=== PATIENT | female | born 2000 | race Caucasian/White ===

== ENCOUNTER 2018-08-31 02:04 | Emergency (ER) | payer OTHER ==
[2018-08-31] MEDS ORDERED: DEXAMETHASONE 10 MG/ML VIAL IVP ONE (02:46)
[2018-08-31] MEDS ORDERED: KETOROLAC 15 MG/1 ML SDV IVP ONE (02:46)
[2018-08-31] MEDS ORDERED: HALOPERIDOL LACT 5 MG/ML INJ IVP ONE (02:46)
[2018-08-31] MEDS ORDERED: DEXAMETHASONE 4 MG/ML VIAL ONE ×2 (02:54→02:55)
--- NOTE | 2018-08-31 03:28 | EDPHY ---
H & P Stated Complaint: DAVILA, vision changes, decreased appetite, fatigue, feverlike x days - Personal History Current Tetanus/Diphtheria Vaccine: Yes Current Tetanus Diphtheria and Acellular Pertussis (TDAP): Yes - Medical/Surgical History Hx Asthma: No Hx Chronic Respiratory Disease: No Hx Diabetes: No Hx Cardiac Disease: No Hx Renal Disease: No Hx Cirrhosis: No Hx Alcoholism: No Hx HIV/AIDS: No Hx Splenectomy or Spleen Trauma: No Other PMH: poss brain tumor, seizures Time Seen by Provider: 08/31/18 02:24 HPI/ROS: Chief Complaint: Headache, vision changes, difficulty with speech HPI: 17-year-old woman presenting complaining of 3 days of left-sided headache. It is described as pounding. About an 8/10. Is made worse with bright light or bright noise. She does not have a history of similar headaches in the past. Does have a family history migraine headaches in her mother and grandmother. Some nausea but no vomiting. Is also complaining of pain in her left jaw since she had her wisdom teeth removed 3 months ago. No fevers or chills. She does have a history of seizures when she was a child between the ages of 3 and 8. She also tells me that at that time she had brain scans and was told that she had an abnormality in the left frontal portion of her brain and in the back of her brain. At that time it was recommended to her parents that she have surgical repair of these. The patient's parents deferred that treatment. She has not had a brain scan since she was 11 years old. Patient also states that 2 weeks ago she was told by her friends that when she was trying to speak she seemed to be speaking nonsensical words. This went on an off over the course of the day and then resolved. ROS: 10 systems were reviewed and were negative except those elements noted in the HPI. PMH: Seizure disorders a child, possible brain av malformation Social History: No smoking, no alcohol, no recreational drug use Family History: non-contributory Physical Exam: Gen: Awake, Alert, No Distress HEENT: Nose: no rhinorrhea Eyes: PERRLA, EOMI Mouth: Moist mucosa Neck: Supple, no JVD Chest: nontender, lungs clear to auscultation Heart: S1, S2 normal, no murmur Abd: Soft, non-tender, no guarding Back: no CVA tenderness, no midline tenderness Ext: no edema, non-tender Skin: no rash Neuro: CN II-XII intact, Sensation grossly intact, Strength 5/5 in bilateral upper and lower extremities (Shar Lyman) Constitutional: Initial Vital Signs Temperature (C) 37.0 C 08/31/18 02:08 Heart Rate 86 08/31/18 02:08 Respiratory Rate 20 08/31/18 02:08 Blood Pressure 132/90 H 08/31/18 02:08 O2 Sat (%) 96 08/31/18 02:08 O2 Delivery Mode Room Air Allergies/Adverse Reactions: lorazepam [From Ativan] Allergy (Verified 08/31/18 02:07) Hives Home Medications: Medication Instructions Recorded Ibuprofen 08/31/18 Medical Decision Making - Diagnostics Imaging Results: Imaging Impressions Brain MRI 08/31/18 02:47 Impression: Negative MRI of the brain without and with contrast. Results called to Dr. Bourgeois at 8:30 AM. Head MRA 08/31/18 03:24 Impression: Negative MR angiography of the [place]. Results called to Dr. Bourgeois at 8:30 AM. ED Course/Re-evaluation: 17-year-old presenting with headache would sounds very much like a migraine headache. Was concerning, however, is that she has a history of abnormal brain scans as a child and actually had recommendations of surgical parents for what sounds like AV malformations. Given the new onset of her symptoms plan will be to obtain MRI and MRA of her brain. Will place an IV and give her migraine cocktail at this time. She is neurologically intact at this time. Patient is improved after migraine cocktail. Headaches in a 11/12. Am awaiting MRI. 0700 patient signed out to Dr. Bourgeois pending MRI results. (Shar Lyman) 7:00 a.m.-I assumed care of this patient at shift change. The plan per Dr. Lyman is to discharge the patient home if the MRI results are unremarkable. 9:00 a.m.-MRI results are unremarkable. Results discussed with the patient. Feels much better, headache has resolved. Likely migraine headache. Neurologic exam remains normal. Will discharge home. Warning signs discussed. (Courtney Bourgeois) Differential Diagnosis: Headache including but not limited to subarachnoid hemorrhage, migraine headache , tension headache and infectious causes such as meningitis, pharyngitis and sinusitis. (Courtney Bourgeois) - Data Points Laboratory Results: Laboratory Results 08/31/18 03:27 08/31/18 03:27 08/31/18 08/31/18 08/31/18 03:27 03:27 03:27 WBC 6.12 10^3/uL 10^3/uL (3.80-9.50) RBC 4.40 10^6/uL 10^6/uL (4.18-5.33) Hgb 13.3 g/dL g/dL (12.6-16.3) Hct 38.8 % % (38.0-47.0) MCV 88.2 fL fL (81.5-99.8) MCH 30.2 pg pg (27.9-34.1) MCHC 34.3 g/dL g/dL (32.4-36.7) RDW 11.8 % % (11.5-15.2) Plt Count 293 10^3/uL 10^3/uL (150-400) MPV 9.0 fL fL (8.7-11.7) Neut % (Auto) 32.1 % L % (39.3-74.2) Lymph % (Auto) 51.8 % H % (15.0-45.0) [place] % (Auto) 12.7 % % (4.5-13.0) Eos % (Auto) 2.5 % % (0.6-7.6) Baso % (Auto) 0.7 % % (0.3-1.7) Nucleat RBC Rel Count 0.0 % % (0.0-0.2) Absolute Neuts (auto) 1.97 10^3/uL 10^3/uL (1.70-6.50) Absolute Lymphs (auto) 3.17 10^3/uL H 10^3/uL (1.00-3.00) Absolute Monos (auto) 0.78 10^3/uL 10^3/uL (0.30-0.80) Absolute Eos (auto) 0.15 10^3/uL 10^3/uL (0.03-0.40) Absolute Basos (auto) 0.04 10^3/uL 10^3/uL (0.02-0.10) Absolute Nucleated RBC 0.00 10^3/uL 10^3/uL (0-0.01) Immature Gran % 0.2 % % (0.0-1.1) Immature Gran # 0.01 10^3/uL 10^3/uL (0.00-0.10) Sodium 141 mEq/L mEq/L (135-145) Potassium 4.3 mEq/L mEq/L (3.3-5.0) Chloride 109 mEq/L mEq/L (97-110) Carbon Dioxide 24 mEq/l mEq/l (22-31) Anion Gap 8 mEq/L mEq/L (6-14) BUN 7 mg/dL mg/dL (7-23) Creatinine 0.7 mg/dL mg/dL (0.6-1.0) Estimated GFR > 60 Glucose 90 mg/dL mg/dL (70-100) Calcium 9.2 mg/dL mg/dL (8.5-10.4) Beta HCG, Qual NEGATIVE Medications Given: Discontinued Medications Dexamethasone (Decadron Injection) 10 mg IVP EDNOW ONE Stop: 08/31/18 02:47 Last Admin: 08/31/18 03:38 Dose: 10 mg Diphenhydramine HCl (Benadryl Injection) 25 mg IVP EDNOW ONE Stop: 08/31/18 02:47 Last Admin: 08/31/18 03:38 Dose: 25 mg Haloperidol Lactate (Haldol Injection) 2.5 mg IVP EDNOW ONE Stop: 08/31/18 02:47 Last Admin: 08/31/18 03:38 Dose: 2.5 mg Ketorolac Tromethamine (Toradol) 15 mg IVP EDNOW ONE Stop: 08/31/18 02:47 Last Admin: 08/31/18 03:39 Dose: 15 mg Departure - Departure Disposition: Home, Routine, Self-Care Clinical Impression: Migraine headache Qualifiers: Migraine type: without aura Status migrainosus presence: without status migrainosus Intractability: not intractable Qualified Code(s): G43.009 - Migraine without aura, not intractable, without status migrainosus Condition: Good Instructions: Migraine Headache (ED) Additional Instructions: Return for worsening symptoms or any concerns. Referrals: Mee Coronado MD [[facility] [place] Primary Care Provider] - As per Instructions (Call to make an appointment)
[2018-08-31 04:03] LABS: PLATELET COUNT 293 10^3/uL (150-400)
[2018-08-31] MEDS ORDERED: GADOBUTROL 10 ML VIAL IVP ONE (06:37)
[2018-08-31 09:32] VITALS: BP 112/76
== END 2018-08-31 09:32 | disposition home or self-care (01) ==
DX: G43.009 Migraine without aura, not intractable, without status migrainosus (principal)
CPT/HCPCS: 96374; A9585; J1100; J1200; J1630; J1885